=== PATIENT | male | born 1965 | race Caucasian/White ===

== ENCOUNTER 2018-09-06 21:38 | Emergency (ER) | payer OTHER ==
--- OUTSIDE RECORDS SUMMARY | 2018-09-06 21:41 | XMS REPORT ---
:1965 Author Organization eClinicalWorks Care Team Providers Name Role Phone Andrea Jaffe Provider Role Unavailable Allergies No Known Allergies Problems No Known Problems Medications No Known Medications Results No Known Results Summary Purpose eClinicalWorks Submission
--- OUTSIDE RECORDS SUMMARY | 2018-09-06 21:41 | XMS REPORT ---
:1965 Author Organization eClinicalWorks Care Team Providers Name Role Phone Andrea Jaffe Provider Role Unavailable Allergies, Adverse Reactions, Alerts Substance Reaction Event Type Quinine Sulfate Info Not Available Drug Allergy Problems Problem Type Condition Code Onset Dates Condition Status Assessment Encounter for screening colonoscopy Z12.11 Active Assessment Hemorrhoids, external K64.4 Active Medications Medication Code System Code Instructions Start End Date Status Dosage Date Cefuroxime [facility] [id number] 500 MG Oral Active TAKE 1 Axetil TABLET BY MOUTH EVERY 12 HOURS FOR 7 DAYS Results No Known Results Summary Purpose eClinicalWorks Submission
--- OUTSIDE RECORDS SUMMARY | 2018-09-06 21:41 | XMS REPORT ---
:1965 Author Organization eClinicalWorks Care Team Providers Name Role Phone Gurabo, Ling Provider Role Unavailable Allergies, Adverse Reactions, Alerts Substance Reaction Event Type Quinine Sulfate Info Not Available Drug Allergy Problems Problem Type Condition Code Onset Dates Condition Status Assessment Grade II hemorrhoids K64.1 Active Assessment Encounter for screening colonoscopy Z12.11 Active Medications Medication Code System Code Instructions Start End Date Status Dosage Date Cefuroxime [facility] [id number] 500 MG Oral Active TAKE 1 Axetil TABLET BY MOUTH EVERY 12 HOURS FOR 7 DAYS Results No Known Results Summary Purpose eClinicalWorks Submission
[2018-09-06] MEDS ORDERED: NA CHLORIDE 0.9% 1,000 ML ONE (22:15)
[2018-09-06 22:52] LABS: Absolute Lymphocytes (CBC) 4.2 K/uL (0.7-4.9); Absolute Monocytes 0.7 K/uL (0.1-1.3); Absolute Neutrophil 4.1 K/uL (1.8-8.0); Eosinophils % 1.9 % (0-4.4); Hematocrit 43.9 % (39.6-49.0); Lymphocytes % 45.2 % (15.3-44.8); MPV 8.3 fL (7.6-11.3); Monocytes % 7.5 % (3.3-12.3); RBC Red Blood Cell Count 4.65 M/uL (4.33-5.43)
[2018-09-06 22:54] LABS: Protime INR 1.03
[2018-09-06 22:56] LABS: Urine Blood 1+ (NEG); Urine Glucose NEGATIVE (NEG); Urine Protein NEGATIVE (NEG); Urine pH 5.5 (5.0-7.0)
[2018-09-06] MEDS ORDERED: AMLODIPINE 5 MG TAB ONE (22:56)
[2018-09-06 23:11] LABS: ALT/SGPT 18 U/L (12-78); AST/SGOT 13 U/L (15-37); Albumin 3.7 g/dL (3.4-5.0); Alkaline Phosphatase 74 U/L (45-117); BUN Blood Urea Nitrogen 12 mg/dL (7-18); Bicarbonate 24 mmol/L (21-32); Bilirubin Direct 0.1 mg/dL (0-0.2); Bilirubin Total 0.5 mg/dL (0.2-1.0); Glucose Level 107 mg/dL (74-106); Lipase 366 U/L (73-393); Magnesium 2.1 mg/dL (1.8-2.4); NT PRO-BNP 78 pg/mL (<125); Potassium 3.6 mmol/L (3.5-5.1); Protein, Total 7.1 g/dL (6.4-8.2); Sodium Level 141 mmol/L (136-145); Troponin (Emerg Dept Use Only) < 0.02 ng/mL (0.0-0.045)
--- NOTE | 2018-09-07 01:40 | ER ---
Nurse's Notes [facility] Name: Carl Nunez Age: 53 yrs Sex: Male : 1965 Arrival Date: 09/06/2018 Time: 21:42 Bed 7 Private MD: ISHMAEL GARCIA Diagnosis: Essential (primary) hypertension;Low back pain;Tobacco abuse counseling;Tobacco use;Dysuria;Chronic obstructive pulmonary disease, unspecified Presentation: 09/06 21:52 Presenting complaint: Patient states: "My blood pressure is whacked out. I have been jd3 having this pressure in my lower stomach and back and my blood pressure at home was 176/105. I don't have any pain, it's just pressure.". Transition of care: patient was not received from another setting of care. Onset of symptoms was September 06, 2018. Risk Assessment: Do you want to hurt yourself or someone else? Patient reports no desire to harm self or others. Initial Sepsis Screen: Does the patient meet any 2 criteria? No. Patient's initial sepsis screen is negative. Does the patient have a suspected source of infection? No. Patient's initial sepsis screen is negative. Care prior to arrival: None. 21:52 Method Of Arrival: Wheelchair jd3 21:52 Acuity: SHEKHAR 2 jd3 Historical: - Allergies: 21:55 No Known Allergies; jd3 - Home Meds: 21:55 None [Active]; jd3 - PMHx: 21:55 None; jd3 - PSHx: 21:55 None; jd3 - Immunization history:: Adult Immunizations up to date. - Social history:: Smoking status: Patient uses tobacco products, smokes one pack cigarettes per day. - Ebola Screening: : Patient negative for fever greater than or equal to 101.5 degrees Fahrenheit, and additional compatible Ebola Virus Disease symptoms. Screenin:56 Abuse screen: Denies threats or abuse. Nutritional screening: No deficits noted. jd3 Tuberculosis screening: No symptoms or risk factors identified. Fall Risk Ambulatory Aid- None/Bed Rest/Nurse Assist (0 pts). Gait- Normal/Bed Rest/Wheelchair (0 pts) Mental Status- Oriented to own ability (0 pts). Total Olivo Fall Scale indicates No Risk (0-24 pts). Assessment: 21:58 General: Appears in no apparent distress. Behavior is calm, cooperative, appropriate ca1 for age. Pain: Complains of pain in groin, right femoral area and left femoral area Pain radiates to low back area Pain currently is 2 out of 10 on a pain scale. Quality of pain is described as pressure, Pain began 2-3 days ago. Neuro: Level of Consciousness is awake, alert, obeys commands, Oriented to person, place, time, situation. Neuro: Cardiovascular: Heart tones S1 S2 present Capillary refill < 3 seconds Patient's skin is warm and dry. Respiratory: Airway is patent Trachea midline Respiratory effort is even, unlabored, Respiratory pattern is regular, symmetrical, Breath sounds are clear bilaterally. GI: Abdomen is flat, non-distended, Bowel sounds present X 4 quads. Abd is soft Abdomen is tender to palpation in suprapubic area and right lower quadrant. : No signs and/or symptoms were reported regarding the genitourinary system. EENT: No signs and/or symptoms were reported regarding the EENT system. Derm: Skin is intact, Skin is pink, warm \\T\\ dry. Musculoskeletal: Circulation, motion, and sensation intact. Capillary refill < 3 seconds, Range of motion: intact in all extremities. 22:43 Reassessment: Patient appears in no apparent distress at this time. Patient and/or ca1 family updated on plan of care and expected duration. Pain level reassessed. Patient is alert, oriented x 3, equal unlabored respirations, skin warm/dry/pink. 23:18 Reassessment: patient wheeled to CT scan. ca1 23:48 Reassessment: Patient appears in no apparent distress at this time. Patient and/or lp1 family updated on plan of care and expected duration. Pain level reassessed. Patient is alert, oriented x 3, equal unlabored respirations, skin warm/dry/pink. Patient back from CT scan. 09/07 00:27 Reassessment: Patient appears in no apparent distress at this time. Patient and/or ca1 family updated on plan of care and expected duration. Pain level reassessed. Patient is alert, oriented x 3, equal unlabored respirations, skin warm/dry/pink. Awaiting CT scan results. 02:02 Reassessment: Patient appears in no apparent distress at this time. Patient is alert, lp1 oriented x 3, equal unlabored respirations, skin warm/dry/pink. Patient states feeling better. Patient states symptoms have improved. Vital Signs: 09/06 21:55 BP 158 / 102; Pulse 81; Resp 18 S; Temp 98.2(O); Pulse Ox 98% on R/A; Weight 92.99 kg jd3 (R); Height 6 ft. 2 in. (187.96 cm) (R); Pain 2/10; 22:34 BP 139 / 91; Pulse 70; Resp 12; Pulse Ox 100% on R/A; lp1 22:43 BP 145 / 94; Pulse 74; Resp 19; Pulse Ox 99% on R/A; ca1 23:18 BP 141 / 92; Pulse 71; Resp 18; Pulse Ox 97% on R/A; ca1 23:48 BP 134 / 86; Pulse 73; Resp 18; Pulse Ox 99% on R/A; lp1 09/07 00:30 BP 128 / 90; Pulse 67; Resp 14; Pulse Ox 98% on R/A; lp1 01:00 BP 124 / 88; Pulse 69; Resp 13; Pulse Ox 97% on R/A; lp1 01:30 BP 114 / 70; Pulse 72; Resp 15; Pulse Ox 98% on R/A; lp1 02:02 BP 114 / 71; Pulse 67; Resp 12; Pulse Ox 98% on R/A; Pain 1/10; lp1 09/06 21:55 Body Mass Index 26.32 (92.99 kg, 187.96 cm) jd3 ED Course: 09/06 21:42 Patient arrived in ED. es 21:43 ISHMAEL GARCIA is Private Physician. es 21:45 Shane De León MD is Attending Physician. stewart 21:54 Triage completed. jd3 21:55 Kacey Zavala, GURPREET is Primary Nurse. ca1 21:56 Arm band placed on. jd3 21:56 Patient has correct armband on for positive identification. Placed in gown. Bed in low jd3 position. Call light in reach. Side rails up X 1. Adult w/ patient. 21:58 enterprise services manager on. Pulse ox on. NIBP on. Warm blanket given. ca1 22:11 Missed attempt(s): 20 gauge in right antecubital area. ca1 22:15 Missed attempt(s): 20 gauge in left forearm. ca1 22:27 XRAY Chest (1 view) In Process Unspecified. EDMS 22:34 Radiology exam delayed due to lab results not completed at this time. (BUN/Creatinine). sj 22:38 Initial lab(s) drawn, by me, sent to lab. EKG done, by ED staff, reviewed by Shane De León MD. Inserted saline lock: 18 gauge in right antecubital area, using aseptic technique. Blood collected. 22:55 Radiology exam delayed due to lab results not completed at this time. (BUN/Creatinine). sj 23:[address] via wheelchair. kw1 23:33 CT Aorta for Dissection In Process Unspecified. EDMS 23:37 CT completed. Patient tolerated procedure well. Patient moved back from CT. kw1 09/07 01:39 ISHMAEL GARCIA is Referral Physician. [facility] 02:02 No provider procedures requiring assistance completed. IV discontinued, No lp1 redness/swelling at site. Pressure dressing applied. Administered Medications: 09/06 22:40 Drug: NS 0.9% 1000 ml Route: IV; Rate: 75 ml/hr; Site: right antecubital; ca1 09/07 02:03 Follow up: IV Status: IV converted to saline lock lp1 09/06 22:45 Drug: Norvasc 10 mg Route: PO; ca1 09/07 00:00 Follow up: Response: Blood pressure is lowered lp1 Outcome: 01:39 Discharge ordered by . [facility] 02:02 Discharged to home ambulatory, with significant other. lp1 02:02 Condition: good 02:02 Discharge instructions given to patient, significant other, Instructed on discharge instructions, follow up and referral plans. medication usage, Demonstrated understanding of instructions, follow-up care, medications, Prescriptions given X 2. 02:03 Patient left the ED. lp1 Signatures: Dispatcher [employer] Shane Raza MD MD cha Salyer, Alondra Small Maria ms Pena, Laura, RN RN lp1 Henrry Leigh RN RN jd3 Wilhelm, Kimberly kw1 Kacey Zavala RN RN ca1 Corrections: (The following items were deleted from the chart) 09/06 23:18 21:58 Pulse ox on. NIBP on. ca1 ca1
--- NOTE | 2018-09-07 01:40 | EDPHYS ---
Physician Documentation [facility] Name: Carl Nunez Age: 53 yrs Sex: Male : 1965 Arrival Date: 09/06/2018 Time: 21:42 Bed 7 Private MD: ISHMAEL GARCIA ED Physician Shane De León HPI: 09/06 22:34 This 53 yrs old Male presents to ER via Wheelchair with complaints of High stewart Blood Pressure, Back Pain, Urinary Problem. 22:34 The patient has elevated blood pressure and discovered this at home. Onset: The stewart symptoms/episode began/occurred 2 day(s) ago. Modifying factors: The symptoms are aggravated by activity, The symptoms are alleviated by remaining still. Associated signs and symptoms: The patient has no apparent associated signs or symptoms. Severity of symptoms: At its worst the blood pressure was mild, moderate, in the emergency department the blood pressure is unchanged. The patient has experienced similar episodes in the past, several times. Historical: - Allergies: 21:55 No Known Allergies; jd3 - Home Meds: 21:55 None [Active]; jd3 - PMHx: 21:55 None; jd3 - PSHx: 21:55 None; jd3 - Immunization history:: Adult Immunizations up to date. - Social history:: Smoking status: Patient uses tobacco products, smokes one pack cigarettes per day. - Ebola Screening: : Patient negative for fever greater than or equal to 101.5 degrees Fahrenheit, and additional compatible Ebola Virus Disease symptoms. ROS: 22:35 Constitutional: Negative for fever, chills, and weight loss, Eyes: Negative for injury, stewart pain, redness, and discharge, ENT: Negative for injury, pain, and discharge, Neck: Negative for injury, pain, and swelling, Cardiovascular: Negative for chest pain, palpitations, and edema, Respiratory: Negative for shortness of breath, cough, wheezing, and pleuritic chest pain, Abdomen/GI: Negative for abdominal pain, nausea, vomiting, diarrhea, and constipation, Back: Negative for injury and pain, : Negative for injury, bleeding, discharge, and swelling, Skin: Negative for injury, rash, and discoloration, Neuro: Negative for headache, weakness, numbness, tingling, and seizure, Psych: Negative for depression, anxiety, suicide ideation, homicidal ideation, and hallucinations, Allergy/Immunology: Negative for hives, rash, and allergies, Endocrine: Negative for neck swelling, polydipsia, polyuria, polyphagia, and marked weight changes, Hematologic/Lymphatic: Negative for swollen nodes, abnormal bleeding, and unusual bruising. Exam: 22:35 Constitutional: This is a well developed, well nourished patient who is awake, alert, stewart and in no acute distress. Head/Face: Normocephalic, atraumatic. Eyes: Pupils equal round and reactive to light, extra-ocular motions intact. Lids and lashes normal. Conjunctiva and sclera are non-icteric and not injected. Cornea within normal limits. Periorbital areas with no swelling, redness, or edema. ENT: Nares patent. No nasal discharge, no septal abnormalities noted. Tympanic membranes are normal and external auditory canals are clear. Oropharynx with no redness, swelling, or masses, exudates, or evidence of obstruction, uvula midline. Mucous membranes moist. Neck: Trachea midline, no thyromegaly or masses palpated, and no cervical lymphadenopathy. Supple, full range of motion without nuchal rigidity, or vertebral point tenderness. No Meningismus. Chest/axilla: Normal chest wall appearance and motion. Nontender with no deformity. No lesions are appreciated. Cardiovascular: Regular rate and rhythm with a normal S1 and S2. No gallops, murmurs, or rubs. Normal PMI, no JVD. No pulse deficits. Respiratory: Lungs have equal breath sounds bilaterally, clear to auscultation and percussion. No rales, rhonchi or wheezes noted. No increased work of breathing, no retractions or nasal flaring. Abdomen/GI: Soft, non-tender, with normal bowel sounds. No distension or tympany. No guarding or rebound. No evidence of tenderness throughout. Back: No spinal tenderness. No costovertebral tenderness. Full range of motion. Male : Normal genitalia with no discharge or lesions. Skin: Warm, dry with normal turgor. Normal color with no rashes, no lesions, and no evidence of cellulitis. MS/ Extremity: Pulses equal, no cyanosis. Neurovascular intact. Full, normal range of motion. Neuro: Awake and alert, GCS 15, oriented to person, place, time, and situation. Cranial nerves II-XII grossly intact. Motor strength 5/5 in all extremities. Sensory grossly intact. Cerebellar exam normal. Normal gait. Psych: Awake, alert, with orientation to person, place and time. Behavior, mood, and affect are within normal limits. Vital Signs: 21:55 BP 158 / 102; Pulse 81; Resp 18 S; Temp 98.2(O); Pulse Ox 98% on R/A; Weight 92.99 kg jd3 (R); Height 6 ft. 2 in. (187.96 cm) (R); Pain 2/10; 22:34 BP 139 / 91; Pulse 70; Resp 12; Pulse Ox 100% on R/A; lp1 22:43 BP 145 / 94; Pulse 74; Resp 19; Pulse Ox 99% on R/A; ca1 23:18 BP 141 / 92; Pulse 71; Resp 18; Pulse Ox 97% on R/A; ca1 23:48 BP 134 / 86; Pulse 73; Resp 18; Pulse Ox 99% on R/A; lp1 09/07 00:30 BP 128 / 90; Pulse 67; Resp 14; Pulse Ox 98% on R/A; lp1 01:00 BP 124 / 88; Pulse 69; Resp 13; Pulse Ox 97% on R/A; lp1 01:30 BP 114 / 70; Pulse 72; Resp 15; Pulse Ox 98% on R/A; lp1 02:02 BP 114 / 71; Pulse 67; Resp 12; Pulse Ox 98% on R/A; Pain 1/10; lp1 09/06 21:55 Body Mass Index 26.32 (92.99 kg, 187.96 cm) jd3 MDM: 09/06 21:45 Patient medically screened. [facility] 22:36 Data reviewed: vital signs, nurses notes, lab test result(s), EKG, radiologic studies, [facility] CT scan, plain films. 09/06 21:57 Order name: Basic Metabolic Panel [facility] 09/06 21:57 Order name: CBC with Diff; Complete Time: 23:28 [facility] 09/06 21:57 Order name: LFT's; Complete Time: 23:28 [facility] 09/06 21:57 Order name: Magnesium; Complete Time: 23:28 [facility] 09/06 21:57 Order name: NT PRO-BNP; Complete Time: 23:28 [facility] 09/06 21:57 Order name: PT-INR; Complete Time: 23:28 [facility] 09/06 21:57 Order name: Troponin (emerg Dept Use Only); Complete Time: 23:28 [facility] 09/06 21:57 Order name: XRAY Chest (1 view) [facility] 09/06 21:57 Order name: Lipase; Complete Time: 23:28 [facility] 09/06 21:57 Order name: Urine Culture [facility] 09/06 21:58 Order name: Basic Metabolic Panel; Complete Time: 23:28 EDMS 09/06 22:28 Order name: Urine Dipstick--Ancillary (enter results); Complete Time: 23:28 ar5 09/06 22:34 Order name: CT Aorta for Dissection [facility] 09/06 21:57 Order name: EKG; Complete Time: 21:58 [facility] 09/06 21:57 Order name: Cardiac monitoring; Complete Time: 22:33 [facility] 09/06 21:57 Order name: EKG - Nurse/Tech; Complete Time: 22:38 [facility] 09/06 21:57 Order name: IV Saline Lock; Complete Time: 22:38 [facility] 09/06 21:57 Order name: Labs collected and sent; Complete Time: 22:38 [facility] 09/06 21:57 Order name: O2 Per Protocol; Complete Time: 22:33 [facility] 09/06 21:57 Order name: O2 Sat Monitoring; Complete Time: 22:34 [facility] 09/06 21:57 Order name: Urine Dipstick-Ancillary (obtain specimen); Complete Time: 22:33 [facility] Administered Medications: 22:40 Drug: NS 0.9% 1000 ml Route: IV; Rate: 75 ml/hr; Site: right antecubital; ca1 09/07 02:03 Follow up: IV Status: IV converted to saline lock lp1 09/06 22:45 Drug: Norvasc 10 mg Route: PO; ca1 09/07 00:00 Follow up: Response: Blood pressure is lowered lp1 Disposition: 09/07/18 01:39 Discharged to Home. Impression: Essential (primary) hypertension, Low back pain, Tobacco abuse counseling, Tobacco use, Dysuria, Chronic obstructive pulmonary disease, unspecified. - Condition is Stable. - Discharge Instructions: Back Pain, Adult, Dysuria, Hypertension, Musculoskeletal Pain, Steps to Quit Smoking, Smoking Hazards, Hypertension, Psik-gi-Egrb, Back Pain, Adult, Byka-[id number]-Pdvz, How to Take Your Blood Pressure, [id number], Aspirin and Your Heart, Managing Your Hypertension. - Prescriptions for Norvasc 5 mg Oral Tablet - take 1 tablet by ORAL route once daily; 20 tablet. Bactrim DS 800- 160 mg Oral Tablet - take 1 tablet by ORAL route every 12 hours for 7 days; 14 tablet. - Medication Reconciliation Form, Thank You Letter, Antibiotic Education, Prescription Opioid Use form. - Follow up: ISHMAEL GARCIA; When: 2 - 3 days; Reason: Recheck today's complaints, Continuance of care, Re-evaluation by your physician. - Problem is new. - Symptoms have improved. Signatures: Dispatcher [employer] EDMS Shane De León MD MD cha Pena, Laura, RN RN lp1 Henrry Leigh RN RN jKacey Srivastava RN RN ca1 Corrections: (The following items were deleted from the chart) 02:03 01:39 09/07/2018 01:39 Discharged to Home. Impression: Essential (primary) lp1 hypertension; Low back pain; Tobacco abuse counseling; Tobacco use; Dysuria; Chronic obstructive pulmonary disease, unspecified. Condition is Stable. Discharge Instructions: Back Pain, Adult, Hypertension, Musculoskeletal Pain, Steps to Quit Smoking, Smoking Hazards, Hypertension, Lcrf-[id number]-[id number], Back Pain, Adult, Qqwu-ka-[id number], How to Take Your Blood Pressure, Topc-vh-Mjyh, Aspirin and Your Heart, Managing Your Hypertension, Dysuria. Prescriptions for Norvasc 5 mg Oral Tablet - take 1 tablet by ORAL route once daily; 20 tablet, Bactrim DS 800-160 mg Oral Tablet - take 1 tablet by ORAL route every 12 hours for 7 days; 14 tablet. and Forms are Medication Reconciliation Form, Thank You Letter, Antibiotic Education, Prescription Opioid Use. Follow up: ISHMAEL GARCIA; When: 2 - 3 days; Reason: Recheck today's complaints, Continuance of care, Re-evaluation by your physician. Problem is new. Symptoms have improved. stewart
[2018-09-07 02:27] VITALS: TEMP 98.2
[2018-09-07 02:36] VITALS: O2SAT 98
[2018-09-07 02:38] VITALS: BP 114/71
--- NOTE | 2018-09-07 05:53 | RAD REPORT ---
EXAM DESCRIPTION: RAD - Chest Single View - 09/06/2018 10:26 pm CLINICAL HISTORY: Chest pain, hypertension COMPARISON: Chest film February 2012 TECHNIQUE: AP portable chest image was obtained 2225 hours . FINDINGS: Lungs are clear. Heart and vasculature are normal. No measurable pleural effusion and no p neumothorax. No acute bony abnormality seen. No acute aortic finding. Hilar regions are similar to co mparison. IMPRESSION: No acute cardiopulmonary process.
--- NOTE | 2018-09-07 07:15 | EKG ---
Test Date: 2018-09-06 Test Time: 22:24:39 Metal Buggy Operator: PIPPA MEASUREMENT RESULTS: Intervals: Rate: 69 OR: 162 QRSD: 86 QT: 382 QTc: 409 Kinsey: P: 67 OR: 162 QRS: 13 T: 56 INTERPRETIVE STATEMENTS: Normal sinus rhythm Possible Left atrial enlargement Borderline ECG Compared to ECG 03/09/2012 07:50:21 No significant changes Electronically Signed On 09-07-18 07:14:40 [employer] by Tello Crystal
--- NOTE | 2018-09-07 08:26 | RAD REPORT ---
EXAM DESCRIPTION: CT - Angio Aorta For Dissection - 09/07/2018 7:05 am CLINICAL HISTORY: Chest pain, hypertension A preliminary report was provided at the time of the study and reviewed prior to final report. COMPARISON: Chest films same date TECHNIQUE: Dynamically enhanced 3 mm thick images of the chest, abdomen, and upper pelvis were obtai lucius during administration of approximately 150mL Isovue 370 IV contrast. Sagittal and coronal reconst ruction images were generated using MIP and reviewed. Exam utilizes a protocol to evaluate entire cou rse of the aorta. All CT scans are performed using dose optimization technique as appropriate and may include automated exposure control or mA/KV adjustment according to patient size. FINDINGS: Aorta is normal in diameter with no dissection or other acute aortic findings. Reconstruct ion images show no significant findings. Pulmonary arteries are normal as well. No cardiomegaly, pericardial thickening or pericardial effusio n. No mass or infiltrate in the lung parenchyma. No pleural thickening, pleural effusion or pneumothorax . No abnormal mediastinal or hilar mass or lymphadenopathy seen. No chest wall mass or abnormal axillar y lymphadenopathy. Celiac, SMA and renal arteries show no suspicious findings. Solid abdominal viscera and bowel show no significant findings. Gallbladder and biliary tree are unremarkable. Cortical thinning lateral mid left kidney presumed to be from prior injury. No active process seen. Appendix is normal. No mass or abnormal lymphadenopathy. No free air, free fluid or inflammatory stranding. No urinary bladder abnor mality. IMPRESSION: Negative CT scan of the aorta. No other significant findings on chest, abdomen and upper pelvis examination.
== END 2018-09-07 02:03 | disposition home or self-care (01) ==
LOC: ER 21:38
DX: I10 Essential (primary) hypertension (principal); R30.0 Dysuria; J44.9 Chronic obstructive pulmonary disease, unspecified; M54.5 Low back pain; Z72.0 Tobacco use; Z71.6 Tobacco abuse counseling
CPT/HCPCS: 36415; 71045; 71275; 74175; 80048; 80076; 81003; 83690; 83735; 83880; 84484; 85025; 85610; 87086; 87088; 93005; 96360; 96361; 99285; J7030; Q9967